=== PATIENT | female | born 1985 | race Caucasian/White ===

== ENCOUNTER 2018-10-02 11:38 | Day surgery (SDC) | payer MEDICAID, OTHER ==
[~2018-10-02] VITALS: Ht 149.9 cm; Wt 58.9 kg
[~2018-10-02 11:38] MED LIST: ACET500C5 PO; ZOF8 PO
[2018-10-02 12:47] VITALS: Ht 149.9 cm; Wt 58.9 kg
[2018-10-02 13:17] VITALS: BP 106/65; PULSE 77; RESP 18
--- NOTE | 2018-10-02 13:53 | PREAC ---
Date/Time of Note Date/Time of Note DATE: 10/02/18 TIME: 13:52 Anesthesia Eval and Record Evaluation Time Pre-Procedure Interview DATE: 10/02/18 TIME: 13:52 Age 33 Sex female NPO: 8 hrs Preoperative diagnosis anemia, occult blood stool Planned procedure EGD, colonoscopy Past Medical History Past Medical History: None Surgery & Anesthesia Issues No known issue Meds Anticoagulation: No Beta Preet within 24 hr: No Reason Beta Preet not given: Pt. not on B-Preet Reported Medications [None] No Conflict Check 09/19/11 Discontinued Scripts Acetaminophen* (Tylophen*) 500 Mg Capsule, 1 CAP PO Q6H PRN for PAIN AND OR ELEVATED TEMP, #30 CAP Prov:ADRIANA HONG PA-C 05/24/15 Ondansetron Hcl* (Zofran* ODT) 8 mg -ODT Tab.disper, 8 MG PO Q6H PRN for NAUSEA AND OR VOMITING, #10 TAB Prov:ADRIANA HONG PA-C 05/24/15 Meds reviewed: Yes Allergies Coded Allergies: No Known Allergy (Verified , 05/24/15) Allergies Reviewed: Yes Labs/Studies Labs Reviewed: Reviewed by anesthesiologist test: Negative Pre-procedure Exam Last vitals Vital Signs Date Temp Pulse Resp B/P (MAP) Pulse Ox O2 O2 Flow FiO2 Time Delivery Rate 10/02/18 97.9 77 18 106/65 100 Room Air 13:17 (79) Airway: Adequate mouth opening, Adequate thyromental dist Mallampati: Mallampati II Teeth: Normal Lung: Normal Heart: Normal ASA Physical Status ASA physical status: 1 Emergency: None Planned Anesthetic General/MAC: Mask Planned Pain Management Parenteral pain med Pre-operative Attestations Prior to commencing anesthesia and surgery, the patient was re-evaluated, there was verification of: *The patient's identity *The results of appropriate recent lab work and preoperative vital signs *The above evaluation not changing prior to induction *Anesthetic plan, risk benefits, alternative and complications discussed with patient/family; questions answered; patient/family understands, accepts and wishes to proceed. RENETTA LARA MD October 02, 2018 13:53
[2018-10-02] MEDS ORDERED: LIDOCAINE 2% (SDV) 5 ML INJ ONE (13:56)
[2018-10-02] MEDS ORDERED: PROPOFOL 40 ML ONE (13:56)
[2018-10-02] MEDS ORDERED: ONDANSETRON 4 MG INJ IV PRN (14:00)
[2018-10-02] MEDS ORDERED: PROPOFOL 20 ML ONE (15:33)
[2018-10-02 15:40] VITALS: BP 84/49; PULSE 88; RESP 18
--- NOTE | 2018-10-02 15:43 | PAC ---
Date/Time of Note Date/Time of Note DATE: 10/02/18 TIME: 15:43 Post-Anesthesia Notes Post-Anesthesia Note Last documented vital signs Vital Signs Date Temp Pulse Resp B/P (MAP) Pulse Ox O2 O2 Flow FiO2 Time Delivery Rate 10/02/18 97.9 77 18 106/65 100 Room Air 13:17 (79) Activity: WNL Respiratory function: WNL Cardiovascular function: WNL Mental status: Baseline Pain reasonably controlled: Yes Hydration appropriate: Yes Nausea/Vomiting absent: Yes Comments Bp: 90/50 HR: 84 RR: 15 T: 98 sao2: 99% RENETTA LARA MD October 02, 2018 15:43
[2018-10-02 15:59] VITALS: BP 81/49; PULSE 85; RESP 16
[2018-10-02 16:07] VITALS: BP 95/58; PULSE 83; RESP 18
== END 2018-10-02 16:30 | disposition home or self-care (01) ==
LOC: GIL 11:38
PROVIDERS: ATTEND Internal Medicine Gastroenterology
DX: R19.5 Other fecal abnormalities (principal); K64.8 Other hemorrhoids; K29.50 Unspecified chronic gastritis without bleeding; K20.9 Esophagitis, unspecified
CPT/HCPCS: 43239; 45378; 88305; 88312; Z7610